=== PATIENT | female | born 1995 | race Caucasian/White ===

== ENCOUNTER 2017-10-03 16:42 | Emergency (ER) | payer OTHER ==
[~2017-10-03] VITALS: Ht 160 cm; Wt 48.0 kg
[2017-10-03] MEDS ORDERED: HYDROCODONE/ACETAMINOPHEN 5/325MG TABLET PO ONE (18:00)
[2017-10-03 22:38] VITALS: BP 116/86
== END 2017-10-03 23:05 | disposition home or self-care (01) ==
LOC: ER 17:57
DX: S09.8XXA Other specified injuries of head, initial encounter (principal); S80.11XA Contusion of right lower leg, initial encounter; V03.12XA Pedestrian on skateboard injured in collision with car, pick-up truck or van in traffic accident, initial encounter; Y93.89 Activity, other specified; Y92.488 Other paved roadways as the place of occurrence of the external cause
CPT/HCPCS: 72100; 73502; 73562; 73590; 73610; 81025; 99284